=== PATIENT | male | born 1935 | race Caucasian/White ===

== ENCOUNTER 2020-09-23 23:44 | Emergency (ER) | payer OTHER, BC ==
[2020-09-24 00:37] VITALS: BP 166/86; PULSE 79; TEMP 98.1; BMI 25.8
== END 2020-09-24 01:45 | disposition home or self-care (01) ==
LOC: JER 23:44
DX: S90.512A Abrasion, left ankle, initial encounter (principal); Y99.8 Other external cause status
CPT/HCPCS: 99282-25

== ENCOUNTER 2021-12-18 12:36 | Emergency (ER) | payer OTHER ==
[2021-12-18 12:52] VITALS: BP 116/62; PULSE 89; RESP 18; TEMP 98.3; BMI 25.1
== END 2021-12-18 15:27 | disposition home or self-care (01) ==
LOC: JER 12:36
DX: U07.1 COVID-19 (principal)
CPT/HCPCS: 71046-TC-FY; 99283-25